=== PATIENT | female | born 1995 | race Two or more races ===

== ENCOUNTER 2022-09-19 12:38 | Outpatient (CLI) | payer OTHER | END 2022-09-19 13:45 | disposition home or self-care (01) | LOC: PRENATAL 12:38 | PROVIDERS: ATTEND Obstetrics & Gynecology Maternal & Fetal Medicine | DX: O35.3XX0 Maternal care for (suspected) damage to fetus from viral disease in mother, not applicable or unspecified (principal); O35.9XX0 Maternal care for (suspected) fetal abnormality and damage, unspecified, not applicable or unspecified; O44.00 Complete placenta previa NOS or without hemorrhage, unspecified trimester; Z3A.21 21 weeks gestation of pregnancy ==

== ENCOUNTER 2022-12-06 13:41 | Outpatient (CLI) | payer OTHER | END 2022-12-06 15:25 | disposition home or self-care (01) | LOC: PRENATAL 13:41 | PROVIDERS: ATTEND Obstetrics & Gynecology Maternal & Fetal Medicine | DX: O26.849 Uterine size-date discrepancy, unspecified trimester (principal); O36.8199 Decreased fetal movements, unspecified trimester, other fetus; O24.419 Gestational diabetes mellitus in pregnancy, unspecified control; Z3A.32 32 weeks gestation of pregnancy ==

== ENCOUNTER 2022-12-31 17:03 | Outpatient (CLI) | payer OTHER | END 2022-12-31 17:35 | disposition home or self-care (01) | LOC: NST 17:03 | PROVIDERS: ATTEND Obstetrics & Gynecology | DX: Z34.83 Encounter for supervision of other normal pregnancy, third trimester (principal) ==

== ENCOUNTER 2023-01-03 14:41 | Outpatient (CLI) | payer OTHER | END 2023-01-03 14:43 | disposition home or self-care (01) | LOC: PRENATAL 14:41 | PROVIDERS: ATTEND Obstetrics & Gynecology Maternal & Fetal Medicine | DX: O26.849 Uterine size-date discrepancy, unspecified trimester (principal); O36.8199 Decreased fetal movements, unspecified trimester, other fetus; O24.419 Gestational diabetes mellitus in pregnancy, unspecified control; Z3A.36 36 weeks gestation of pregnancy ==

== ENCOUNTER 2023-01-15 18:38 | Inpatient (IN) | payer OTHER ==
[~2023-01-15] VITALS: Ht 154.9 cm; Wt 59.9 kg
[2023-01-15] MEDS ORDERED: PRENATAL + DHA1 EAC1 PO (20:01)
[2023-01-15 20:17] LABS: URINE APPEARANCE Cloudy; URINE BILIRRUBIN Negative (NEGATIVE); URINE BLOOD Negative; URINE COLOR Yellow; URINE GLUCOSE Negative (NEGATIVE); URINE LEUKOCYTE Negative; URINE NITRATE Negative; URINE PROTEIN 30 (NEGATIVE); URINE UROBILINOGEN 0.2 E.U./dl
[2023-01-15 20:18] LABS: HEMATOCRIT 36.9 % (36.0-45.00); HEMOGLOBIN 12.3 g/dL (12.0-15.00); MEAN CELL VOLUME 86.3 fL (80.00-100.00); MEAN CORPUSCULAR HEMOGLOBIN 28.9 pg (27.00-32.0); MEAN CORPUSCULAR HGB CONC 33.4 g/dl (32.0-36.0); PLATELET COUNT 253 K/uL (150-450); RED BLOOD COUNT 4.27 M/uL (4.00-6.00); RED CELL DISTRIBUTION WIDTH 13.5 % (11.5-14.5)
[2023-01-15 20:21] LABS: URINE BACTERIA 4281.4 uL (0.0-1933); URINE RBC 25.1 uL (0.0-20.8); URINE WBC 35.8 uL (0.0-23.2)
[2023-01-15 20:35] LABS: INR < 0.93; PARTIAL THROMBOPLASTIN TIME 25.1 SECONDS (22.0-34.0); PROTHROMBIN TIME 9.2 SECONDS (9.0-11.5)
[2023-01-15 20:38] LABS: ALBUMIN 3.1 gm/dL (3.4-5.0); BILIRUBIN TOTAL 0.29 mg/dL (0.3-1.2); CALCIUM 9.5 mg/dL (8.5-10.1); CREATININE SERUM 0.56 mg/dL (0.55-1.02); GFR 130.86; GLOBULINA 3.7 G/DL (2.4-3.5); POTASSIUM 3.68 mEq/L (3.5-5.1); TOTAL PROTEIN 6.8 gm/dL (6.4-8.2)
[2023-01-15 21:06] LABS: URINE EPITHELIAL CELLS > 201.7 uL (0.0-38.8)
[2023-01-15 21:07] LABS: URINE CRYSTALS FEW /HPF; URINE MUCUS SCANT
[2023-01-17 02:22] LABS: HEMATOCRIT 34.2 % (36.0-45.00); MEAN CELL VOLUME 84.8 fL (80.00-100.00); MEAN CORPUSCULAR HEMOGLOBIN 28.5 pg (27.00-32.0); MEAN CORPUSCULAR HGB CONC 33.5 g/dl (32.0-36.0); PLATELET COUNT 213 K/uL (150-450); RED BLOOD COUNT 4.03 M/uL (4.00-6.00); RED CELL DISTRIBUTION WIDTH 13.8 % (11.5-14.5)
[2023-01-17 02:24] LABS: HEMOGLOBIN 11.5 g/dL (12.0-15.00)
[2023-01-19] MEDS ORDERED: NAPR500T14 PO (11:14)
[2023-01-19] MEDS ORDERED: Tylenol #3 PO (11:14)
== END 2023-01-19 11:25 | disposition home or self-care (01) | DRG 787 ==
LOC: LDR 18:38 → O/R 01-16 17:44 → OB/GYN 01-16 20:59
PROVIDERS: Obstetrics & Gynecology; ADMIT Obstetrics & Gynecology; ATTEND Obstetrics & Gynecology
PROC: 3E0P7VZ Introduction of Hormone into Female Reproductive, Via Natural or Artificial Opening (ICD-10-PCS; 2023-01-15)
PROC: 4A1HXCZ Monitoring of Products of Conception, Cardiac Rate, External Approach (ICD-10-PCS; 2023-01-15)
PROC: 3E033VJ Introduction of Other Hormone into Peripheral Vein, Percutaneous Approach (ICD-10-PCS; 2023-01-16)
PROC: 10D00Z1 Extraction of Products of Conception, Low, Open Approach (ICD-10-PCS; principal; 2023-01-16 19:30)
DX: O82 Encounter for cesarean delivery without indication (principal); O75.2 Pyrexia during labor, not elsewhere classified; O62.1 Secondary uterine inertia; O62.0 Primary inadequate contractions; Z3A.38 38 weeks gestation of pregnancy; Z37.0 Single live birth; Z20.822 Contact with and (suspected) exposure to COVID-19